=== PATIENT | female | born 1980 | race American Indian/Alaskan Native ===

== ENCOUNTER → 2017-07-18 | Outpatient (CLI) | payer MEDICAID | LOC: SLR 11:00 | PROVIDERS: ATTEND Specialist | DX: G47.30 Sleep apnea, unspecified (principal); E66.9 Obesity, unspecified; I10 Essential (primary) hypertension | CPT/HCPCS: 95810 ==

== ENCOUNTER → 2017-09-12 | Outpatient (CLI) | payer MEDICAID | LOC: SLR 11:00 | PROVIDERS: ATTEND Specialist | DX: G47.33 Obstructive sleep apnea (adult) (pediatric) (principal); I10 Essential (primary) hypertension | CPT/HCPCS: 95811 ==

== ENCOUNTER 2017-10-16 06:26 | Day surgery (SDC) | payer OTHER, MEDICAID ==
[2017-10-16] MEDS ORDERED: WATER FOR IRRIG STERILE IR ONE (07:19)
[2017-10-16] MEDS ORDERED: HURRICAINE ONE 20% TOPICAL SPRAY MM (07:19)
[2017-10-16] MEDS ORDERED: BREVIBLOC IV ONE (07:30)
[2017-10-16] MEDS ORDERED: NACL 0.9% 1000 ML 1,000 ML IV SCH (08:00)
--- NOTE | 2017-10-16 09:13 | Anesthesia Consultation ---
Anesthesia Consult and Med Hx Date of service: 10/16/17 - Airway Anesthetic Teeth Evaluation: Good ROM Head & Neck: Adequate Mental/Hyoid Distance: Adequate Mallampati Class: Class II Intubation Access Assessment: Probably Good - Pulmonary Exam CTA: Yes - Cardiac Exam Cardiac Exam: RRR - Pre-Operative Health Status ASA Pre-Surgery Classification: ASA3 Proposed Anesthetic Plan: MAC - Pulmonary Hx Sleep Apnea: Yes (cpap) - Cardiovascular System Hx Hypertension: Yes
--- NOTE | 2017-10-16 09:14 | Anesthesia Day of Surgery ---
Anesthesia Day of Surgery - Day of Surgery Patient Examined: Yes Patient H&P Reviewed: Yes Patient is NPO: Yes
[2017-10-16] MEDS ORDERED: XYLOCAINE MPF 2% ONE (10:00)
[2017-10-16] MEDS ORDERED: DIPRIVAN 10 MG/ML IV ONE ×2 (10:05→10:36)
--- NOTE | 2017-10-16 10:10 | Discharge Summary ---
Providers - Providers Date of discharge: 10/16/17 Attending physician: HENRIK LARA Hospitalization Condition: Good Procedures: egd Hospital course: pt had an uneventful egd as part of planning for upcoming bariatric surgery Disposition: DC-01 TO HOME OR SELFCARE Core Measure Documentation - Palliative Care Palliative Care/ Comfort Measures: Not Applicable - Core Measures Any of the following diagnoses?: none Exam - Physical Exam Narrative exam: unchanged from pre-op - Constitutional Vitals: Temp Pulse Resp BP Pulse Ox 98.3 F 93 H 19 175/80 98 10/16/17 08:39 10/16/17 08:39 10/16/17 08:39 10/16/17 08:39 10/16/17 08:39 Plan Activity: no restrictions Weight Bearing Status: Full Weight Bearing Diet: regular Follow up with: JACOB MORGAN MD [Other] - 7 Days
--- NOTE | 2017-10-16 10:12 | Operative Report ---
Operative Report Operative Report: OPERATIVE REPORT - EGD DATE 10/16/17 SURGERY: Upper endoscopy. SURGEON: Rachell Tejada M.D. CERTIFICATION AND SELECTION SPECIALIST: Steffi Humphreys DO PRE OP DX: dyspepsia POST OP DX: hiatal hernia TYPE OF ANESTHESIA: MAC. ESTIMATED BLOOD LOSS: None. COMPLICATIONS: None. SPECIMENS REMOVED: None. FINDINGS: 1. Small hiatal hernia. 2. Otherwise, normal esophagus, stomach and first portion of duodenum. INDICATIONS:INDICATION FOR PROCEDURE: Patient is a 37-year-old female with a long history of morbid obesity. She is planned to have a weight loss procedure and is here for preoperative planning EGD. PROCEDURE DETAILS: After consent was reviewed, patient was taken back to the operating room where patient was placed in the left lateral decubitus position and a bite block was placed in the mouth. After a time-out was called, MAC anesthesia was initiated. I then passed the endoscope into her oropharynx, into her esophagus, visualized the entire esophagus, which was all within normal limits. I then visualized the stomach and the first portion of the duodenum and there were no abnormalities I could clearly visualize. I then retroflexed the scope in the stomach and visualized the hiatus and I could see a small hiatal hernia. I then desufflated the stomach and removed the endoscope. Patient tolerated procedure well and was transferred to recovery room in good and stable condition.
[2017-10-16 10:51] VITALS: BP 120/75
--- NOTE | 2017-10-17 19:21 | Post Anesthesia Evaluation ---
- Post Anesthesia Evaluation Patient Participated: Yes Airway Patent: Yes Stable Respiratory Function: Yes Nausea/Vomiting: No Temp > 96.8F: Yes Pain Manageable: Yes Adequeate Hydration: Yes Anesthesia Complications: No Block Receding Appropriately: Not Applicable
== END 2017-10-16 06:27 | disposition home or self-care (01) ==
LOC: GIO 06:26
PROVIDERS: ATTEND Surgery
DX: K44.9 Diaphragmatic hernia without obstruction or gangrene (principal); E66.01 Morbid (severe) obesity due to excess calories; Z68.43 Body mass index [BMI] 50.0-59.9, adult; I10 Essential (primary) hypertension; Z68.42 Body mass index [BMI] 45.0-49.9, adult; Z79.899 Other long term (current) drug therapy; G47.33 Obstructive sleep apnea (adult) (pediatric)
CPT/HCPCS: 43235; 81025; J2704; J7030